=== PATIENT | female | born 1950 | race Caucasian/White ===

== ENCOUNTER 2016-07-30 08:01 | Emergency (ER) | payer MEDICARE, MEDICAID ==
[~2016-07-30] VITALS: Ht 162.6 cm; Wt 72.6 kg
[2016-07-30 08:04] VITALS: BP 126/81
[2016-07-30 08:31] LABS: APPEARANCE,URINE SL CLOUDY (CLEAR); BILIRUBIN,URINE NEGATIVE (NEGATIVE); BLOOD, URINE 3+ Ery/uL (NEGATIVE); COLOR,URINE RED (YELLOW); KETONES,URINE NEGATIVE (NEGATIVE); LEUKOCYTE ESTERASE ,URINE NEGATIVE (NEGATIVE); NITRITE, URINE NEGATIVE (NEGATIVE); PROTEIN,URINE 1+ mg/dl (NEGATIVE); UGLUCOSE NEGATIVE (NEGATIVE); UROBILINOGEN,URINE 0.2 EU/dL (0.2)
[2016-07-30 08:40] LABS: RBC,URINE 51-80 /HPF (0-2); WBC,URINE 0-2 /HPF (0-3)
[2016-07-30 08:41] LABS: ADD URINE CULTURE NO; BACTERIA,URINE Rare /HPF (None Seen); SQUAMOUS EPITHELIAL CELL,UR Rare /HPF (None Seen)
== END 2016-07-30 08:55 | disposition home or self-care (01) ==
LOC: ER 08:04
DX: N12 Tubulo-interstitial nephritis, not specified as acute or chronic (principal); N39.0 Urinary tract infection, site not specified; I10 Essential (primary) hypertension
CPT/HCPCS: 81001; 87086; 99284; A4606; 81000-TC; Z7610

== ENCOUNTER 2016-07-30 15:48 | Emergency (ER) | payer MEDICAID, MEDICARE ==
[~2016-07-30] VITALS: Ht 157.5 cm; Wt 81.6 kg
--- NOTE | 2016-07-30 15:55 | NUR ---
Pt bib self, second visit to er today, left flank pain getting worse. Pt was discharge from er this am. Awaiting md order.
[2016-07-30] MEDS ORDERED: MORPHINE SULFATE INJ 2 MG/ML DISP.SYRIN ONE (16:14)
[2016-07-30] MEDS ORDERED: IV SET PRIMARY PUMP SET 1 EA INFUS.SET MC ONE (16:14)
[2016-07-30] MEDS ORDERED: IV NS 0.9% 1,000 ML ONE (16:14)
[2016-07-30] MEDS ORDERED: KETOROLAC TROMETHAMINE 15 MG/ML VIAL ONE (16:14)
[2016-07-30] MEDS ORDERED: ONDANSETRON HCL/PF 4 MG/2 ML VIAL ONE (16:14)
[2016-07-30 16:18] LABS: BASOPHILS # (AUTO) 0.1 /CMM (0.0-0.2); BASOPHILS % (AUTO) 0.8 % (0.0-2.0); EOSINOPHILS % (AUTO) 0.4 % (0.0-6.0); HEMATOCRIT 46 % (33-45); HEMOGLOBIN 15.6 g/dL (11.5-14.8); LYMPHOCYTES # (AUTO) 3.3 /CMM (0.8-4.8); LYMPHOCYTES % (AUTO) 40.9 % (20.0-44.0); MEAN CORPUSCULAR HEMOGLOBIN 29 PG (26.0-33.0); MEAN CORPUSCULAR HGB CONC 34 g/dl (31.0-36.0); MEAN CORPUSCULAR VOLUME 86 fL (82-100); MONOCYTES # (AUTO) 0.3 /CMM (0.1-1.30); MONOCYTES % (AUTO) 3.2 % (2.0-12.0); NEUTROPHILS # (AUTO) 4.4 /CMM (1.8-8.9); NEUTROPHILS % (AUTO) 54.7 % (43.0-81.0); PLATELET COUNT (AUTO) 268 /CMM (150-450); RDW COEFFICIENT OF VARIATION 12.2 (11.5-15.0); WHITE BLOOD COUNT (AUTO) 8.1 K/uL (4.3-11.0)
[2016-07-30 16:28] LABS: CALCIUM, SERUM 10.5 mg/dL (8.5-10.1); CREATININE 0.8 mg/dL (0.6-1.3); POTASSIUM 3.8 mmol/L (3.5-5.1)
--- NOTE | 2016-07-30 16:28 | NUR ---
ABRAHAM #20 IV ACCESS. BLOOD SMAPLE COLLECTED SENT TO LAB
[2016-07-30] MEDS ORDERED: IV NS 0.9% 1,000 ML BAG IV ONE (16:30)
[2016-07-30] MEDS ORDERED: ONDANSETRON HCL/PF 4 MG/2 ML VIAL IVP ONE (16:30)
[2016-07-30] MEDS ORDERED: MORPHINE SULFATE INJ 2 MG/ML DISP.SYRIN IV ONE (16:30)
[2016-07-30] MEDS ORDERED: KETOROLAC TROMETHAMINE INJ 30 MG/ML VIAL IV ONE (16:30)
[2016-07-30 17:31] VITALS: BP 126/82
--- NOTE | 2016-07-30 17:33 | NUR ---
Patient discharged to home in stable condition. Written and verbal after care instructions given. Patient verbalizes understanding of instruction.IV removed. Catheter intact and site benign. Pressure and 4x4 applied to site. No bleeding noted.nad noted upon discharge
== END 2016-07-30 17:32 | disposition home or self-care (01) ==
LOC: ER 15:52
DX: N13.2 Hydronephrosis with renal and ureteral calculous obstruction (principal); I10 Essential (primary) hypertension; K76.0 Fatty (change of) liver, not elsewhere classified; R11.2 Nausea with vomiting, unspecified
CPT/HCPCS: 36415; 74176; 80048; 85025; 96361; 96374; 96375; 99285; A4606; J1885; J2270; J2405; J7030; Z7610

== ENCOUNTER 2016-09-05 04:36 | Emergency (ER) | payer MEDICARE, MEDICAID ==
[~2016-09-05] VITALS: Ht 165.1 cm; Wt 68.0 kg
[2016-09-05] MEDS ORDERED: MORPHINE SULFATE INJ 4 MG/ML DISP.SYRIN ONE (04:50)
[2016-09-05] MEDS ORDERED: IV SET PRIMARY 1 EA INFUS.SET MC ONE (04:50)
[2016-09-05] MEDS ORDERED: IV NS 0.9% 1,000 ML ONE (04:50)
[2016-09-05] MEDS ORDERED: ONDANSETRON HCL/PF 4 MG/2 ML VIAL ONE (04:50)
--- NOTE | 2016-09-05 04:58 | NUR ---
PT AMBULATORY W/ STEADY GAIT, HERE FOR C/O LT FLANK PAIN W/ N/V, NO DIARRHEA, HX KIDNEY STONES. AOX4, AFEBRILE W/ RESP EVEN & UNLABORED, HTN, NAUSEA W/ NO ACTIVE VOMITING AT THIS TIME, MILD DISCOMFORT NOTED. DR. RUIZ AT BEDSIDE FOR FURTHER EVAL.
--- NOTE | 2016-09-05 04:59 | NUR ---
IVHL STARTED, LABS DRAWN, URINE OBTAINED & SENT. PT MEDICATED ORDERED.
[2016-09-05] MEDS ORDERED: ONDANSETRON HCL/PF 4 MG/2 ML VIAL IVP ONE (05:00)
[2016-09-05] MEDS ORDERED: IV NS 0.9% 1,000 ML BAG IV ONE (05:00)
[2016-09-05] MEDS ORDERED: MORPHINE SULFATE INJ 2 MG/ML DISP.SYRIN IV ONE (05:00)
--- NOTE | 2016-09-05 05:06 | NUR ---
SENT TO CT.
[2016-09-05 05:08] LABS: BASOPHILS % (AUTO) 0.2 % (0.0-2.0); EOSINOPHILS % (AUTO) 0.2 % (0.0-6.0); HEMATOCRIT 43 % (33-45); HEMOGLOBIN 14.9 g/dL (11.5-14.8); LYMPHOCYTES % (AUTO) 18.6 % (20.0-44.0); MEAN CORPUSCULAR HEMOGLOBIN 30 PG (26.0-33.0); MEAN CORPUSCULAR HGB CONC 35 g/dl (31.0-36.0); MEAN CORPUSCULAR VOLUME 85 fL (82-100); MONOCYTES # (AUTO) 0.4 /CMM (0.1-1.30); MONOCYTES % (AUTO) 3.4 % (2.0-12.0); NEUTROPHILS # (AUTO) 8.4 /CMM (1.8-8.9); NEUTROPHILS % (AUTO) 77.6 % (43.0-81.0); PLATELET COUNT (AUTO) 241 /CMM (150-450); RDW COEFFICIENT OF VARIATION 12.8 (11.5-15.0); RED BLOOD CELL COUNT(AUTO) 5.04 MIL/uL (4.0-5.2); WHITE BLOOD COUNT (AUTO) 10.9 K/uL (4.3-11.0)
[2016-09-05 05:13] LABS: APPEARANCE,URINE SL CLOUDY (CLEAR); BILIRUBIN,URINE NEGATIVE (NEGATIVE); BLOOD, URINE 3+ Ery/uL (NEGATIVE); COLOR,URINE YELLOW (YELLOW); KETONES,URINE TRACE (NEGATIVE); LEUKOCYTE ESTERASE ,URINE NEGATIVE (NEGATIVE); NITRITE, URINE NEGATIVE (NEGATIVE); PROTEIN,URINE TRACE mg/dl (NEGATIVE); UGLUCOSE 1+ mg/dL (NEGATIVE); UROBILINOGEN,URINE 0.2 EU/dL (0.2)
[2016-09-05 05:20] LABS: CALCIUM, SERUM 8.9 mg/dL (8.5-10.1); CARBON DIOXIDE 28 mmol/L (21-32); CHLORIDE 102 mmol/L (98-107); GLUCOSE 184 mg/dL (74-106); SODIUM SERUM 139 mmol/L (136-145); UREA NITROGEN, BLOOD 20 mg/dL (7-18)
[2016-09-05 05:22] LABS: RBC,URINE TOO NUMEROUS TO COUN /HPF (0-2)
[2016-09-05 05:23] LABS: BACTERIA,URINE None seen /HPF (None Seen); SQUAMOUS EPITHELIAL CELL,UR Few /HPF (None Seen)
[2016-09-05] MEDS ORDERED: hydrALAZINE HCL IV 20 MG VIAL ONE (05:24)
--- NOTE | 2016-09-05 05:25 | NUR ---
PT BACK FR CT, CONTINUES TO HAVE LT FLANK PAIN W/ ELEVATED BP. DR. RUIZ NOTIFIED. ON CONTINUOUS MONITORING.
[2016-09-05 05:26] LABS: ALBUMIN 4.3 g/dL (3.4-5.0); ALKALINE PHOSPHATASE 133 U/L (46-116); ASPARTATE AMINOTRANSFERASE 28 U/L (15-37); BILIRUBIN,DIRECT 0.1 mg/dL (0.0-0.2); BILIRUBIN,TOTAL 0.7 mg/dL (0.2-1.0); LIPASE 111 U/L (73-393); TOTAL PROTEIN, SERUM 8.5 g/dL (6.4-8.2)
[2016-09-05 05:28] LABS: TROPONIN I < 0.017 ng/mL (0.00-0.056)
[2016-09-05 05:29] LABS: ALANINE AMINOTRANSFERASE 55 U/L (12-78)
[2016-09-05] MEDS ORDERED: hydrALAZINE HCL IV 20 MG VIAL IV ONE (05:30)
--- NOTE | 2016-09-05 05:55 | NUR ---
PT AMBULATORY W/ STEADY GAIT TO RESTROOM, REPORT LT FLANK PAIN PARTIALLY RELIEVED W/ PAIN MEDICATIONS, RESP EVEN & UNLABORED, BP IMPROVED W/ NAD NOTED.
[2016-09-05 05:56] VITALS: BP 158/79
--- NOTE | 2016-09-05 05:57 | NUR ---
DR. RUIZ AT BEDSIDE FOR UPDATE ON PT STATUS.
--- NOTE | 2016-09-05 05:59 | NUR ---
IV removed. Catheter intact and site benign. Pressure and 4x4 applied to site. No bleeding noted.Patient discharged to home in stable condition. Written and verbal after care instructions given. Patient verbalizes understanding of instruction.
== END 2016-09-05 05:59 | disposition home or self-care (01) ==
LOC: ER 04:38
DX: N20.0 Calculus of kidney (principal); I16.0 Hypertensive urgency; K76.0 Fatty (change of) liver, not elsewhere classified; Z95.828 Presence of other vascular implants and grafts
CPT/HCPCS: 36415; 74176; 80048; 80076; 81001; 83605; 83690; 84484; 85025; 87040 ×2; 96361; 96374; 96375; 99285; A4606; J0360; J2270; J2405; J7030; 81000-TC; Z7610

== ENCOUNTER 2019-09-21 11:19 | Emergency (ER) | payer MEDICARE, OTHER ==
[~2019-09-21] VITALS: Ht 152.4 cm; Wt 68.0 kg
[2019-09-21 11:20] VITALS: BP 187/88
--- NOTE | 2019-09-21 11:20 | NUR ---
came in from home for left hip pain x 1 week, denies trauma or injury 10/10 pain scale, took norco 5/325 mg 1 hr ago, to ER bed 9, hooked to monitor, warm blanket provided, patient aao x 4, breathing even and unlabored. Dr Joyner at bedside
[2019-09-21] MEDS ORDERED: KETOROLAC TROMETHAMINE INJ 30 MG/ML VIAL ONE (11:58)
[2019-09-21] MEDS ORDERED: KETOROLAC TROMETHAMINE INJ 60 MG/2 ML VIAL IM ONE (12:00)
== END 2019-09-21 12:06 | disposition home or self-care (01) ==
LOC: ER 11:26
DX: M54.30 Sciatica, unspecified side (principal); I10 Essential (primary) hypertension; Z98.890 Other specified postprocedural states
CPT/HCPCS: 73503; 96372; 99283; J1885; 73502

== ENCOUNTER 2024-07-10 02:16 | Emergency (ER) | payer MEDICARE, OTHER | END 2024-07-10 03:51 | disposition left against medical advice (07) | LOC: ER 02:31 | DX: I10 Essential (primary) hypertension (principal); Z53.21 Procedure and treatment not carried out due to patient leaving prior to being seen by health care provider ==